=== PATIENT | female | born 1980 | race Caucasian/White ===

== ENCOUNTER 2024-05-20 11:21 | Emergency (ER) | payer MEDICAID ==
[~2024-05-20] VITALS: Ht 157.5 cm; Wt 68.0 kg
[2024-05-20 11:38] VITALS: O2SAT 97
[2024-05-20 15:03] LABS: HCG SCREEN NEGATIVE
[2024-05-20 16:08] VITALS: BP 125/76; PULSE 80; RESP 18; TEMP 37.00296; O2SAT 97
== END 2024-05-20 16:08 | disposition home or self-care (01) ==
LOC: ER 12:34
DX: R51.9 Headache, unspecified (principal); Y08.89XA Assault by other specified means, initial encounter; Y93.01 Activity, walking, marching and hiking; Y92.89 Other specified places as the place of occurrence of the external cause; Y99.8 Other external cause status
CPT/HCPCS: 70486; 84703; 99284